=== PATIENT | male | born 1965 ===

== ENCOUNTER → 2024-06-21 16:13 | Outpatient (BNVA) | payer OTHER, SELFPAY | PROVIDERS: Visit Provider Podiatrist Foot & Ankle Surgery | DX: M79.671 Pain in right foot (principal); M79.672 Pain in left foot; M76.821 Posterior tibial tendinitis, right leg; B35.3 Tinea pedis; M76.822 Posterior tibial tendinitis, left leg | CPT/HCPCS: 73630; 99203 ==

== ENCOUNTER → 2024-09-18 13:28 | Outpatient (BNVA) | payer OTHER, SELFPAY | PROVIDERS: Referring Provider Family Medicine; Visit Provider Nurse Practitioner Family | DX: G89.29 Other chronic pain (principal); M51.362 Other intervertebral disc degeneration, lumbar region with discogenic back pain and lower extremity pain; M47.26 Other spondylosis with radiculopathy, lumbar region | CPT/HCPCS: 99214 ==